=== PATIENT | female | born 2005 | race Caucasian/White ===

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

== ENCOUNTER → 2024-04-19 | Outpatient (CLI) | payer BC ==
[2024-04-19 15:24] VITALS: BP 94/61; PULSE 90; RESP 16; TEMP 98.6
--- NOTE | 2024-04-19 15:52 | P.SLEEP ---
History of Present Illness DATE: 04/19/2024 CONSULTATION/NEW PATIENT EVALUATION HISTORY OF PRESENT ILLNESS/SLEEP-WAKE EVALUATION: 18-year-old girl had been evaluated in the sleep center for possible obstructive sleep apnea hypopnea syndrome. SLEEP SCHEDULE: Usually sleep schedule from 1 AM until 9 AM on school days and from 1 AM until 10:30 AM on weekend. FALLING ASLEEP: No problems with falling asleep. DURING SLEEP: Patient has loud snoring, multiple awakenings from sleep, witnessed episodes of stop breathing during the sleep by her mother. No history of hypnogogical hallucinations, sleep paralysis, or cataplexy. DURING THE DAY/WAKE STATE: In the morning patient wake up tired, has difficulties to pay attention, falling asleep during the day. Patient has problems with concentration, irritability, depression and anxiety.. Scenic sleepiness scale is increased to 10. Usually patient does not take naps. PAST MEDICAL HISTORY: Sinuses problems. PAST SURGICAL HISTORY: Tubes in the ears insertion in childhood, left ankle surgery. MEDICATIONS: None. SOCIAL HISTORY: Please see below. FAMILY HISTORY: Please see below, mother has sleep apnea. REVIEW OF SYSTEMS: Loud snoring, witnessed episodes of stop breathing during sleep, sleepiness during the day. No fevers. No double vision. No recent chest pain. No shortness of breath. No abdominal pain. No bleeding episodes. No blood in urine. No seizure episodes. PHYSICAL EXAMINATION: GENERAL: A pleasant patient without any distress. VITAL SIGNS: Please see below weight 274 pounds, BMI 41.6. HEENT: PERRLA, EOMI. Evaluation of oropharynx showed tongue protrudes midline, low position of soft palate Mallampati 2, significant hypertrophy of tonsils. NECK: Supple. No JVD. Thyroid is not palpable. 16 inches in circumference. LUNGS: Clear to percussion and to auscultation. Good air exchange. No wheezing or rhonchi. HEART: S1, S2 regular. No murmurs, gallops or rubs. ABDOMEN: Soft and nontender. Bowel sounds are present. No organomegaly appreciated. EXTREMITIES: No clubbing or cyanosis. BUSINESS AFFAIRS MANAGER: Awake, alert, and oriented x3. Cranial nerves 2 to 7 intact. There is no fasciculation or atrophy noted. No focal deficits observed. ASSESSMENT: 1. Loud snoring, witnessed episodes of stop breathing during the sleep, small oropharyngeal airspace secondary to significant hypertrophy of tonsils, sleepiness with Scenic Sleepiness Scale 10. Obstructive sleep apnea hypopnea syndrome. 2. Movements during the sleep, possibly periodic limb movements. 3. Obesity BMI 41.6. 4. Sinus problems. 5 status post ear infection with tube insertion in childhood. 6 . Status post left ankle surgery. PLAN: 1. Home sleep apnea test for evaluation of patient's breathing during sleep. 2. Following plan after reading sleep study. 3. Preferable position during sleep on the side. 4. No driving if patient feels any sleepiness. Patient is aware of civil and criminal liability for unsafe driving. 5. Sleep hygiene with regular sleep time for at least 7.5-8 hours. 6. Watching and losing weight. Thank you very much for referring this patient for consultation. Sincerely, Fco Alvarado MD, PhD, FAASM. Diplomat of [employer], Sleep Medicine Board by [employer] [employer] Legal Service Specialist of [facility] [place] cc: Reina Swenson [employer] Past Medical History Past Medical History: No Reported History History of Any Multi-Drug Resistant Organisms: None Reported Past Surgical History: Orthopedic Surgery Additional Past Surgical History / Comment(s): wisdom teeth, tubes in ear Past Anesthesia/Blood Transfusion Reactions: No Reported Reaction Past Psychological History: No Psychological Hx Reported Smoking Status: Never smoker Past Drug Use History: None Reported - Past Family History Mother Family Medical History: GERD/Reflux, Sleep Apnea/CPAP/BIPAP Additional Family Medical History / Comment(s): snoring Physical Exam Vitals: Vital Signs Temp Pulse Resp BP Pulse Ox 04/19/24 15:22 98.6 F 90 16 94/61 97 Intake and Output 04/19/24 04/19/24 04/19/24 06:59 14:59 22:59 Other: Weight 124.284 kg Sleep Note - Sleep Data ESS Total: 10 - Sleep Note Sleep Note: Temperature: 98.6 F Pulse Rate: 90 Respiratory Rate: 16 Blood Pressure: 94/61 SpO2: 97 Height: 5 ft 8 in Weight: 124.284 kg BMI: Neck Circumference: 16
== END ==
LOC: 3 N SLEEP 14:38
PROVIDERS: ATTEND Internal Medicine
DX: G47.33 Obstructive sleep apnea (adult) (pediatric) (principal); G47.10 Hypersomnia, unspecified; E66.9 Obesity, unspecified; J34.89 Other specified disorders of nose and nasal sinuses; J35.1 Hypertrophy of tonsils; Z98.890 Other specified postprocedural states; Z68.41 Body mass index [BMI] 40.0-44.9, adult
CPT/HCPCS: 99211

== ENCOUNTER → 2024-05-14 | Outpatient (CLI) | payer BC ==
--- NOTE | 2024-05-20 10:57 | P.PCN ---
Description of Procedure: CLINICAL: A home sleep apnea test has been done for confirmation of possible obstructive sleep apnea-hypopnea syndrome. DESCRIPTION OF PROCEDURE: RESULTS: Recording time was 7 hours 20 minutes. Evaluation time was 6 hours 58 minutes. Evaluation time is sufficient for making conclusion about results of the test. Raw data of sleep recording has been reviewed and is adequate. Respiratory channel showed 103 apneas and 149 hypopneas. Apnea-hypopnea index was 36.1 per hour. Pulse rate in the range between minimum 51, maximum 107, average 71 by computer calculation. Lowest desaturation was 66%. IMPRESSION: 1. Severe Obstructive Sleep Apnea Hypopnea Syndrome. Please see other impressions from consultation. PLAN: 1. The patient should have PAP titration for correction of respiratory abnormallities during sleep. 2. Sleep hygiene with regular time in bed for at least 8 hours. 3. Watching weight. 4. No driving if feeling any sleepiness. Thank you very much for allowing me to participate in the management of your patient. Sincerely, Fco Alvarado MD, PhD, FAASM Diplomat of [employer] Sleep Medicine Board of [place] Soiled Linen Distributor of [facility] [employer] cc: Reina Swenson
== END ==
LOC: 3 N SLEEP 11:00
PROVIDERS: ATTEND Internal Medicine
DX: G47.33 Obstructive sleep apnea (adult) (pediatric) (principal)

== ENCOUNTER 2024-06-02 20:37 | Outpatient (CLI) | payer BC ==
--- NOTE | 2024-06-03 18:55 | P.PCN ---
Description of Procedure: CLINICAL: Titration with positive air pressure has been done for correction of respiratory abnormalities during sleep. DESCRIPTION OF PROCEDURE: The standard montage for clinical polysomnography included the electroencephalogram, the electrocardiogram, the mentalis surface electromyography and Lead II cardiography. The respiratory battery consisted of measurements of nasal /buccal air flow, pressure transducer measurements from the nose, thoracic and /or abdominal effort and intercostal surface electromyography. Video monitoring has been done to check for any parasomnia events. Nocturnal oxyhemoglobin saturations were obtained by finger oximetry. Step-pedraza titration with positive airway pressure was utilized to control respiratory events. Raw data of sleep recording has been reviewed and is adequate. RESULTS: Sleep efficiency was slightly decreased to 83.2%. Latency to sleep onset was significantly prolonged to 57.5 minutes.]. Sleep architecture showed stage N1 was short 2.8%, Delta sleep was normal at 12.0%, REM sleep was slightly decreased to 17.6%. Heart rate was minimum 67 BPM, maximum 83 BPM, average 76 BPM. EMG showed 1.5 periodic limb movements per hour with 0.9 micriarousals per hour. PAP titration have been done with CPAP up to the pressure 12 cm H2O. The best results were at the pressure 12 cm H2O. Apnea hypopnea index reduced to 0. IMPRESSION: 1. Obstructive sleep apnea hypopnea syndrome on controle with PAP treatment. 2. No significant periodic limb movements have been documented. Please see other impressions from consultation. PLAN: 1. The patient will have treatment with positive air pressure equipment with the level of pressure AutoPap 7-13 cm H2O and should use it every night for the whole night. 2. Watching and losing weight. 3. Sleep hygiene with regular time in bed for at least 8 hours. 4. No driving if feeling any sleepiness. 5. I will see the patient for follow up visit to explain the results of the test, recommendations, check compliance with treatment and make any necessary adjustment related to mask fitting, pressure and humidification. Thank you very much for allowing me to participate in the management of your patient. Sincerely, Fco Alvarado MD, PhD, FAASM Diplomat of [employer] [employer] Sleep Medicine Board of [place] [employer] Binding Cutter of [facility] [place] cc: Reina Swenson
== END 2024-06-03 05:40 | disposition home or self-care (01) ==
LOC: 3 N SLEEP 20:37
PROVIDERS: ATTEND Internal Medicine
DX: G47.33 Obstructive sleep apnea (adult) (pediatric) (principal); Z99.89 Dependence on other enabling machines and devices
CPT/HCPCS: 95811